=== PATIENT | female | born 1965 | race Two or more races ===

== ENCOUNTER 2024-12-29 11:10 | Emergency (ER) | payer OTHER ==
[~2024-12-29] VITALS: Ht 157.5 cm; Wt 56.7 kg
[2024-12-29 11:15] VITALS: TEMP 98.4
[2024-12-29] MEDS ORDERED: LORAZEPAM 0.5 MG TABLET ONE (11:29)
[2024-12-29] MEDS: LORAZEPAM 1 MG TABLET PO ONE (11:30)
[2024-12-29] MEDS ORDERED: LORA-258 PO (11:50)
[2024-12-29 12:10] VITALS: BP 131/75; O2SAT 97
== END 2024-12-29 12:10 | disposition home or self-care (01) ==
LOC: ER 11:19
DX: F41.1 Generalized anxiety disorder (principal); E11.9 Type 2 diabetes mellitus without complications